=== PATIENT | female | born 1985 | race Caucasian/White ===

== ENCOUNTER 2024-09-12 09:24 | Emergency (ER) | payer OTHER, SELFPAY ==
[2024-09-12 09:54] LABS: Absolute Basophils 0.1 K/uL (0-0.5); Absolute Eosinophils 0.2 K/uL (0-0.5); Absolute Lymphocytes (CBC) 2.2 K/uL (0.7-4.9); Absolute Monocytes 0.4 K/uL (0.1-1.3); Absolute Neutrophil 4.3 K/uL (1.8-8.0); Basophils % 0.7 % (0-1.3); Eosinophils % 2.2 % (0-4.4); Hematocrit 40.1 % (36.0-45.0); Hemoglobin 14.1 g/dL (12.0-15.0); Lymphocytes % 30.7 % (15.3-44.8); MCH 30.2 pg (27.0-35.0); MCHC 35.3 g/dL (32.0-36.0); MCV 85.7 fL (80-100); MPV 8.1 fL (7.6-11.3); Monocytes % 6.1 % (3.3-12.3); Neutrophils % 60.3 % (41.7-73.7); Platelets 332 thou/uL (152-406); RBC Red Blood Cell Count 4.68 M/uL (3.86-4.86); Red Cell Distribution Width 13.1 % (12.1-15.2)
[2024-09-12 09:57] LABS: Specific Gravity 1.011 (1.005-1.030)
[2024-09-12 10:10] LABS: ALT/SGPT 16 U/L (13-56); Albumin 3.8 g/dL (3.4-5.0); Alkaline Phosphatase 79 U/L (45-117); Anion Gap 7.9 mEq/L (5.0-15.0); BUN Blood Urea Nitrogen 11 mg/dL (7-18); Bicarbonate 29 mEq/L (21-32); Bilirubin Total 0.6 mg/dL (0.2-1.0); Globulin 3.8 g/dL (2.3-3.5); Glomerular Filtration Rate 84 ml/min (=/>90); Glucose Level 95 mg/dL (74-106); Lipase 31 U/L (13-75); Potassium 3.9 mEq/L (3.5-5.1); Protein, Total 7.6 g/dL (6.4-8.2); Sodium Level 137 mEq/L (136-145)
[2024-09-12 10:11] LABS: AST/SGOT < 10 U/L (15-37)
--- NOTE | 2024-09-12 10:43 | RAD REPORT ---
EXAMINATION: Abdomen Pelvis Wo Contrast CLINICAL INDICATION: Female, 38 years old.right flank pain TECHNIQUE: CT abdomen and pelvis was performed, without IV contrast, as per department protocol. Axia l, sagittal and coronal reconstructions were obtained. One or more of the following dose reduction techniques were used: Automated exposure control, adjustment of the mA and/or kV according to the pat ient size, and/or iterative reconstruction. Unless otherwise specified, incidental findings do not require dedicated imaging follow-up. [id number]. IV CONTRAST: Not administered. COMPARISON: None FINDINGS: The lack of intravenous contrast limits the sensitivity of this exam for evaluation of solid visceral organs, vascular structures, and retroperitoneum. LOWER CHEST: No acute process identified.No significant pericardial effusion. UPPER GI: No significant abnormality. LIVER: No significant focal abnormality. GALLBLADDER/BILE DUCTS: Cholecystomy? PANCREAS: No mass, ductal dilation, or enma-pancreatic fluid. SPLEEN: Unremarkable. ADRENALS: No adrenal masses. KIDNEYS AND URETERS: No hydronephrosis.Limited evaluation for renal lesions in the absence of IV cont rast.No renal calculi. ABDOMINAL AORTA AND OTHER VESSELS: Normal caliber aorta and IVC. PERITONEUM: No abnormal free fluid. No free air. LYMPH NODES: No pathologic lymphadenopathy. ABDOMINAL WALL: Unremarkable SMALL BOWEL/COLON: Small bowel has normal course and caliber. No colonic wall thickening or pericolon ic inflammatory changes.Normal appendix. URINARY BLADDER: Underdistended but grossly unremarkable. REPRODUCTIVE ORGANS: No pathologic process. MUSCULOSKELETAL: L4-S1 fusion. ADDITIONAL FINDINGS: None. IMPRESSION: No acute findings within the abdomen or pelvis. No urinary tract calculi. Normal appendix.
[2024-09-12 12:08] LABS: Urine Color Light-Yellow (Yellow)
[2024-09-12 12:09] LABS: Specific Gravity 1.011 (1.005-1.030); Urine Bilirubin Negative (Negative); Urine Blood Trace (Negative); Urine Clarity Clear (Clear); Urine Glucose Negative (Negative); Urine Ketones Negative (Negative); Urine Microscopic Reflex YN ORDER UMIC; Urine Nitrite Negative (Negative); Urine Protein Negative (Negative); Urine Urobilinogen Normal mg/dL (0.2-1.0)
[2024-09-12 12:19] LABS: Urine Culture Reflex Order NOT NEEDED; Urine RBC <5 /HPF (None Seen); Urine WBC <5 /HPF (<5)
[2024-09-12 12:20] LABS: Urine Bacteria None Seen /HPF (<20); Urine Mucus 1+ /HPF (None Seen)
--- NOTE | 2024-09-12 12:53 | EDPHYS ---
Physician Documentation [facility] Name: Kaitlin Abarca Age: 38 yrs Sex: Female : 1985 Arrival Date: 09/12/2024 Time: 09:24 Bed 14 Private MD: ED Physician Sandro Hills HPI: 09/12 09:40 This 38 yrs old Female presents to ER via Unassigned with complaints of Abdominal Pain, ms3 Low Back Pain, Pain With Urination. 09:40 38-year-old female with past medical history of atrial fibrillation presents to the [facility] [place] department for right lower quadrant pain that is now radiating to her back and right side of her vagina. Patient states her discomfort is a 6/10. Patient states pushing on it and laying on it makes the discomfort worse. Patient endorses hematuria yesterday. Patient denies dysuria, urinary frequency, fevers. Patient endorses nausea and chills.. Historical: - Allergies: 09:40 tramadol; aa5 - Home Meds: 09:40 Sotalol Oral [Active]; metoprolol [Active]; aspirin [Active]; aa5 - PMHx: 09:40 Atrial fibrillation; Hypertensive disorder; aa5 - PSHx: 09:40 Partial hysterectomy; Cholecystectomy; spinal sx; Left oophorectomy; aa5 - Immunization history:: Adult Immunizations unknown. - Infectious Disease History:: Denies. - Social history:: Smoking status: Patient denies any tobacco usage or history of. ROS: 09:40 Constitutional: Negative for fever, and chills. Cardiovascular: Negative for chest ms3 pain, and palpitations. Respiratory: Negative for shortness of breath, cough, wheezing, and pleuritic chest pain, Abdomen/GI: Negative for abdominal pain, nausea, vomiting, diarrhea, and constipation, MS/Extremity: Negative for injury and deformity, Skin: Negative for injury, rash, and discoloration, 09:40 Back: Positive for flank pain, on the right, Exam: 09:40 Constitutional: This is a well developed, well nourished patient who is awake, alert, ms3 and in no acute distress. Cardiovascular: Regular rate and rhythm with a normal S1 and S2. No gallops, murmurs, or rubs. Normal PMI, no JVD. No pulse deficits. Respiratory: Lungs have equal breath sounds bilaterally, clear to auscultation and percussion. No rales, rhonchi or wheezes noted. No increased work of breathing, no retractions or nasal flaring. Abdomen/GI: Soft, non-tender, with normal bowel sounds. No distension or tympany. No guarding or rebound. No evidence of tenderness throughout. Skin: Warm, dry with normal turgor. Normal color with no rashes, no lesions, and no evidence of cellulitis. MS/ Extremity: Pulses equal, no cyanosis. Neurovascular intact. Full, normal range of motion. 09:40 Back: pain, that is moderate, CVA tenderness, that is moderate, is noted on the right, Vital Signs: 09:34 BP 168 / 106; Pulse 68; Resp 18 S; Pulse Ox 95% on R/A; Weight 99.79 kg (R); Height 5 aa5 ft. 8 in. (R); 09:45 BP 148 / 102; Pulse 60; Resp 18; Temp 97.4(TE); Pulse Ox 96% on R/A; Pain 8/10; ld1 11:27 BP 130 / 90; Pulse 56; Resp 18; Pulse Ox 99% on R/A; ld1 13:19 BP 129 / 88; Pulse 61; Resp 18; Pulse Ox 99% on R/A; ld1 09:34 Body Mass Index 33.45 (99.79 kg, 172.72 cm) aa5 09:45 Pain Scale: Adult ld1 MDM: 09:40 Medical Screening Exam initiated ms3 09:40 Differential diagnosis: Kidney stones versus appendicitis versus abdominal pain versus ms3 UTI versus musculoskeletal pain. 14:13 Data reviewed: vital signs, nurses notes, lab test result(s), radiologic studies, and ms3 as a result, I will discharge patient. Counseling: I had a detailed discussion with the patient and/or guardian regarding the historical points, exam findings, and any diagnostic results supporting the discharge/admit diagnosis, lab results, radiology results, the need for outpatient follow up, to return to the emergency department if symptoms worsen or persist or if there are any questions or concerns that arise at home. Special discussion: I discussed with the patient/guardian in detail that at this point there is no indication for admission to the hospital. It is understood, however, that if the symptoms persist or worsen the patient needs to return immediately for re-evaluation. ED course: Discussed labs and imaging with patient. Patient to follow-up with primary care physician 2 to 3 days. Patient understands and agrees with plan. All questions were answered. Return precautions discussed include worsening symptoms, or any other concerns. On reevaluation patient is alert and oriented x 4, no apparent distress, nontoxic-appearing, speaking full sentences, abdomen benign. 09/12 09:29 Order name: CBC with Diff; Complete Time: 10:13 ms3 09/12 09:29 Order name: CMP; Complete Time: 10:13 ms3 09/12 09:29 Order name: Lipase; Complete Time: 10:13 ms3 09/12 09:29 Order name: Test, Urine; Complete Time: 10:13 ms3 09/12 10:13 Order name: UA Rfx Messi Cult if indicated; Complete Time: 12:29 ms3 09/12 09:39 Order name: CT Abd/Pelvis - Without Contrast; Complete Time: 10:48 3 09/12 09:29 Order name: IV Saline Lock; Complete Time: 09:41 ms3 09/12 09:29 Order name: Labs collected and sent; Complete Time: 09:41 ms3 Administered Medications: No medications were administered Disposition Summary: 09/12/24 12:52 Discharge Ordered Notes: Location: Home ms3 Condition: Stable ms3 Diagnosis - Lower abdominal pain, unspecified ms3 Followup: ms3 - With: Ran Giles DO - When: 2 - 3 days - Reason: Recheck today's complaints Discharge Instructions: - Discharge Summary Sheet ms3 - Abdominal Pain, Adult ms3 Forms: - Medication Reconciliation Form ms3 - Antibiotic Education ms3 - Prescription Opioid Use ms3 - Patient Portal Instructions ms3 - Leadership Thank You Letter ms3 Signatures: Dispatcher [employer] EDLisa Wright RN RN aa5 Sandro Hills DO DO ms3 Corrections: (The following items were deleted from the chart) 10:14 10:14 UA Rfx Messi Cult if indicated+[id number].[email or web address].BRZ ordered. EDMS EDMS
--- NOTE | 2024-09-12 12:53 | ER ---
Nurse's Notes [facility] Name: Kaitlin Abarca Age: 38 yrs Sex: Female : 1985 Arrival Date: 09/12/2024 Time: 09:24 Bed 14 Private MD: Diagnosis: Lower abdominal pain, unspecified Presentation: 09/12 09:34 Chief complaint: Patient states: right sided abd pain radiating to back and vagina. Pt aa5 also reports nausea. 09:34 Coronavirus screen: At this time, the client does not indicate any symptoms associated aa5 with coronavirus-19. Ebola Screen: Patient denies travel to an Ebola-affected area in the 21 days before illness onset. Initial Sepsis Screen: Does the patient meet any 2 criteria? No. Patient's initial sepsis screen is negative. Does the patient have a suspected source of infection? No. Patient's initial sepsis screen is negative. Risk Assessment: Do you want to hurt yourself or someone else? Patient reports no desire to harm self or others. Onset of symptoms was August 2024. 09:34 Acuity: SAILAJA 3 aa5 09:34 Method Of Arrival: Ambulatory aa5 Historical: - Allergies: 09:40 tramadol; aa5 - Home Meds: 09:40 Sotalol Oral [Active]; metoprolol [Active]; aspirin [Active]; aa5 - PMHx: 09:40 Atrial fibrillation; Hypertensive disorder; aa5 - PSHx: 09:40 Partial hysterectomy; Cholecystectomy; spinal sx; Left oophorectomy; aa5 - Immunization history:: Adult Immunizations unknown. - Infectious Disease History:: Denies. - Social history:: Smoking status: Patient denies any tobacco usage or history of. Screenin:45 [facility] ED Fall Risk Assessment (Adult) History of falling in the last 3 months, ld1 including since admission No falls in past 3 months (0 pts) Confusion or Disorientation No (0 pts) Intoxicated or Sedated No (0 pts) Impaired Gait No (0 pts) Mobility Assist Device Used No (0 pt) Altered Elimination No (0 pt) Score/Fall Risk Level 0 - 2 = Low Risk Oriented to surroundings, Hourly rounding (assess needs \T\ fall precautionary measures) done. Abuse screen: Denies threats or abuse. Denies injuries from another. Nutritional screening: No deficits noted. Tuberculosis screening: No symptoms or risk factors identified. Assessment: 09:45 General: Appears in no apparent distress. uncomfortable, Behavior is calm, cooperative, ld1 appropriate for age. Pain: Complains of pain in right low back and right lower quadrant Pain does not radiate. Pain currently is 8 out of 10 on a pain scale. Quality of pain is described as throbbing, Pain began suddenly, Is continuous. Neuro: Level of Consciousness is awake, alert, obeys commands, Oriented to person, place, time, situation. Cardiovascular: Capillary refill < 3 seconds Patient's skin is warm and dry. Respiratory: Airway is patent Respiratory effort is even, unlabored. GI: Abdomen is round non-distended, Bowel sounds present X 4 quads. Abd is soft Abdomen is tender to palpation in posterior aspect of right lateral abdomen and right lower quadrant Reports lower abdominal pain, upper abdominal pain. : No signs and/or symptoms were reported regarding the genitourinary system. EENT: No signs and/or symptoms were reported regarding the EENT system. Derm: No signs and/or symptoms reported regarding the dermatologic system. Musculoskeletal: No signs and/or symptoms reported regarding the musculoskeletal system. Vital Signs: 09:34 BP 168 / 106; Pulse 68; Resp 18 S; Pulse Ox 95% on R/A; Weight 99.79 kg (R); Height 5 aa5 ft. 8 in. (R); 09:45 BP 148 / 102; Pulse 60; Resp 18; Temp 97.4(TE); Pulse Ox 96% on R/A; Pain 8/10; ld1 11:27 BP 130 / 90; Pulse 56; Resp 18; Pulse Ox 99% on R/A; ld1 13:19 BP 129 / 88; Pulse 61; Resp 18; Pulse Ox 99% on R/A; ld1 09:34 Body Mass Index 33.45 (99.79 kg, 172.72 cm) aa5 09:45 Pain Scale: Adult ld1 ED Course: 09:28 Patient arrived in ED. im 09:29 Sandro Hills DO is Attending Physician. ms3 09:34 Arm band placed on. aa5 09:35 Karen Hills, RN is Primary Nurse. ld1 09:41 Inserted saline lock: 20 gauge in right antecubital area, using aseptic technique. ld1 Blood collected. Flushed with 10 mL NS. 09:45 Triage completed. aa5 09:45 Patient has correct armband on for positive identification. Bed in low position. Call ld1 light in reach. Side rails up X2. Pulse ox on. NIBP on. Door closed. Noise minimized. Warm blanket given. 09:45 No provider procedures requiring assistance completed. ld1 09:50 Test, Urine Sent. ld1 09:50 Lipase Sent. ld1 09:50 CMP Sent. ld1 09:50 CBC with Diff Sent. ld1 10:29 CT Abd/Pelvis - Without Contrast In Process Unspecified. EDMS 12:52 Ran Giles DO is Referral Physician. ms3 13:20 IV discontinued, intact, bleeding controlled, No redness/swelling at site. ld1 Administered Medications: No medications were administered Medication: :45 VIS not applicable for this client. ld1 Outcome: 12:52 Discharge ordered by MD. ms3 13:20 Discharged to home ambulatory, ld1 13:20 Condition: stable 13:20 Discharge instructions given to patient, Instructed on discharge instructions, follow up and referral plans. Demonstrated understanding of instructions, follow-up care, 13:20 Patient left the ED. ld1 Signatures: Dispatcher [employer] EDMS Lisa Somers, RN RN aa5 Sandro Hills DO DO ms3 Karen Hills, RN RN ld1 Jennifer Flores
[2024-09-12 13:38] VITALS: TEMP 97.4
[2024-09-12 13:39] VITALS: O2SAT 99
[2024-09-12 13:41] VITALS: BP 129/88
== END 2024-09-12 13:20 | disposition home or self-care (01) ==
LOC: ER 09:24
DX: R10.31 Right lower quadrant pain (principal); R30.0 Dysuria
CPT/HCPCS: 36415; 74176; 80053; 81001; 81025; 83690; 85025; 99284